=== PATIENT | female | born 1980 | race Caucasian/White ===

== ENCOUNTER 2019-06-04 15:30 | Emergency (ER) | payer MEDICAID ==
[~2019-06-04] VITALS: Ht 157.5 cm; Wt 52.1 kg
[~2019-06-04 15:30] MED LIST: IBUP-1542 PO; PRED20TA PO; [UNRECOGNIZED DRUG - REMARK]
[2019-06-04 15:56] VITALS: BP 126/65; PULSE 93; RESP 18; Ht 157.5 cm; Wt 52.1 kg
== END 2019-06-04 18:56 | disposition home or self-care (01) ==
LOC: E/R 15:30
DX: E04.1 Nontoxic single thyroid nodule (principal)
CPT/HCPCS: 76536; 80053; 84436; 84443; 84479; 85025; Z7502